=== PATIENT | female | born 1970 | race Caucasian/White ===

== ENCOUNTER 2017-01-25 02:30 | Emergency (ER) | payer OTHER ==
[2017-01-25] MEDS ORDERED: NS 0.9% 1000 ML* 1,000 ML IV ONE (03:00)
[2017-01-25 03:19] LABS: Hematocrit 51 % (35-47); Hemoglobin 16.6 g/dl (12.0-16.0); Mean Corpuscular HGB Conc 33 g/dl (31-36); Mean Corpuscular Hemoglobin 27 pg (27-31); Mean Corpuscular Volume 84 fL (80-97); Mean Platelet Volume 10 um3 (7.4-10.4); Red Blood Count 6.12 10^6/ul (4.0-5.4); Red Cell Distribution Width 14 % (10.5-15); White Blood Count 11.5 10^3/ul (3.5-10.8)
[2017-01-25 03:27] LABS: ALT 11 U/L (7-52); AST 11 U/L (13-39); Albumin 3.7 g/dL (3.2-5.2); Alkaline Phosphatase 68 U/L (34-104); Anion Gap 6 mmol/L (2-11); BUN/Creatinine Ratio 15.6 (8-20); Blood Urea Nitrogen 10 mg/dL (6-24); C Reactive Protein 22.51 mg/L (< 5.00); CO2 Carbon Dioxide 23 mmol/L (22-32); Calcium 8.8 mg/dL (8.6-10.3); Chloride 104 mmol/L (101-111); EGFR African American 128.5 (>60); EGFR Non-African American 99.9 (>60); Globulin 3.2 g/dL (2-4); Glucose 149 mg/dL (70-100); Lipase 10 U/L (11.0-82.0); Potassium 3.6 mmol/L (3.5-5.0); Sodium 133 mmol/L (133-145); Total Protein 6.9 g/dL (6.4-8.9)
[2017-01-25 05:05] LABS: Urine Bilirubin Negative (Negative); Urine Glucose Negative (Negative); Urine Nitrite Negative (Negative)
--- NOTE | 2017-01-25 05:06 | ED ---
Nataly Garcia Erika, scribed for Ivan Dennis MD on 01/25/17 at 0314 . Abdominal Pain/Female - HPI Summary HPI Summary: Patient is a 46-year-old female presenting to the ED with her son and father with a CC of constant RLQ pain starting at 02:00 today. Patient describes pain as a cramping that felt like a contraction, but did not resolve. Pain has improved somewhat since onset. Patient denies nausea, vomiting, and difficulty urinating. Patient has an IUD. Pt is followed by [facility]. - History of Current Complaint Chief Complaint: EDAbdPain Stated Complaint: LRQ PAIN Time Seen by Provider: 01/25/17 02:55 Hx Obtained From: Patient Onset/Duration: Sudden Onset, Lasting Minutes, Still Present Timing: Constant Severity Initially: Moderate Severity Currently: Mild Pain Intensity: 5 Pain Scale Used: 0-10 Numeric Location: Discrete At: RLQ Radiates: No Character: Cramping Associated Signs and Symptoms: Negative: Urinary Symptoms, Nausea, Vomiting Allergies/Adverse Reactions: Allergies Allergy/AdvReac Type Severity Reaction Status Date / Time Amoxicillin Allergy Hives Verified 01/25/17 02:36 Penicillins Allergy Hives Verified 01/25/17 02:36 PMH/Surg Hx/FS Hx/Imm Hx Musculoskeletal History: Reports: Other Musculoskeletal History - carpal tunnel - Surgical History Surgery Procedure, Year, and Place: C section x2 Infectious Disease History: No Infectious Disease History: Denies: Traveled Outside the [place] in Last 30 Days - Family History Known Family History: Positive: Cardiac Disease, Hypertension, Diabetes - Social History Alcohol Use: None Hx Substance Use: No Substance Use Type: Reports: None Hx Tobacco Use: Yes Smoking Status (MU): Heavy Every Day Tobacco Smoker Review of Systems Negative: Fever Positive: Abdominal Pain. Negative: Vomiting, Nausea Negative: dysuria All Other Systems Reviewed And Are Negative: Yes Physical Exam Triage Information Reviewed: Yes Vital Signs On Initial Exam: Initial Vitals Temp Pulse Resp BP Pulse Ox 97.8 F 96 18 134/74 95 01/25/17 02:34 01/25/17 02:34 01/25/17 02:34 01/25/17 02:34 01/25/17 02:34 Vital Signs Reviewed: Yes Appearance: Positive: Well-Appearing, No Pain Distress Skin: Positive: Warm Head/Face: Positive: Normal Head/Face Inspection Eyes: Positive: DAV ENT: Positive: Hearing grossly normal Neck: Positive: Supple Respiratory/Lung Sounds: Positive: Clear to Auscultation, Breath Sounds Present Cardiovascular: Positive: RRR Abdomen Description: Positive: Soft, Other: - mild lower abd tenderness Bowel Sounds: Positive: Present Musculoskeletal: Positive: Strength/ROM Intact Neurological: Positive: Sensory/Motor Intact Psychiatric: Positive: Affect/Mood Appropriate - [place] Coma Scale Coma Scale Total: 15 Diagnostics - Vital Signs Vital Signs Temp Pulse Resp BP Pulse Ox 01/25/17 02:34 97.8 F 96 18 134/74 95 - Laboratory Lab Results: Lab Results 01/25/17 01/25/17 01/25/17 Range/Units 03:05 03:05 04:45 WBC 11.5 H (3.5-10.8) 10^3/ul RBC 6.12 H (4.0-5.4) 10^6/ul Hgb 16.6 H (12.0-16.0) g/dl Hct 51 H (35-47) % MCV 84 (80-97) fL MCH 27 (27-31) pg MCHC 33 (31-36) g/dl RDW 14 (10.5-15) % Plt Count 184 (150-450) 10^3/ul MPV 10 (7.4-10.4) um3 Neut % (Auto) 60.6 (38-83) % Lymph % (Auto) 30.0 (25-47) % [place] % (Auto) 7.5 (1-9) % Eos % (Auto) 1.3 (0-6) % Baso % (Auto) 0.6 (0-2) % Absolute Neuts (auto) 7.0 (1.5-7.7) 10^3/ul Absolute Lymphs (auto) 3.5 (1.0-4.8) 10^3/ul Absolute Monos (auto) 0.9 H (0-0.8) 10^3/ul Absolute Eos (auto) 0.1 (0-0.6) 10^3/ul Absolute Basos (auto) 0.1 (0-0.2) 10^3/ul Absolute Nucleated RBC 0.01 10^3/ul Nucleated RBC % 0.1 Sodium 133 (133-145) mmol/L Potassium 3.6 (3.5-5.0) mmol/L Chloride 104 (101-111) mmol/L Carbon Dioxide 23 (22-32) mmol/L Anion Gap 6 (2-11) mmol/L BUN 10 (6-24) mg/dL Creatinine 0.64 (0.51-0.95) mg/dL Est GFR ( Amer) 128.5 (>60) Est GFR (Non-Af Amer) 99.9 (>60) BUN/Creatinine Ratio 15.6 (8-20) Glucose 149 H (70-100) mg/dL Calcium 8.8 (8.6-10.3) mg/dL Total Bilirubin 0.80 (0.2-1.0) mg/dL AST 11 L (13-39) U/L ALT 11 (7-52) U/L Alkaline Phosphatase 68 (34-104) U/L C-Reactive Protein 22.51 H (< 5.00) mg/L Total Protein 6.9 (6.4-8.9) g/dL Albumin 3.7 (3.2-5.2) g/dL Globulin 3.2 (2-4) g/dL Albumin/Globulin Ratio 1.2 (1-3) Lipase 10 L (11.0-82.0) U/L Beta HCG, Quant < 0.60 mIU/mL Urine Color Yellow Urine Appearance Clear Urine pH 6.0 (5-9) Ur Specific [place] 1.025 (1.010-1.030) Urine Protein Negative (Negative) Urine Ketones Negative (Negative) Urine Blood Negative (Negative) Urine Nitrate Negative (Negative) Urine Bilirubin Negative (Negative) Urine Urobilinogen Negative (Negative) Ur Leukocyte Esterase Negative (Negative) Urine Glucose Negative (Negative) Result Diagrams: 01/25/17 03:05 01/25/17 03:05 Lab Statement: Any lab studies that have been ordered have been reviewed, and results considered in the medical decision making process. Re-Evaluation - Re-Evaluation First Eval Change: Improved Abdominal Pain Fem Course/Dx - Course Course Of Treatment: A 46 y/o F presents to the ED with a CC of RLQ abdominal cramping. Blood work completed. UA WNL. Patient's pain has improved. Patient will be discharged home with follow up from her PCP. - Diagnoses Provider Diagnoses: Abdominal pain Discharge - Discharge Plan Condition: Improved Disposition: HOME Patient Education Materials: Abdominal Pain (ED) Referrals: Brandy Daley MD [Primary Care Provider] - Additional Instructions: Please follow up with your PCP The documentation as recorded by the Nataly moya Erika accurately reflects the service I personally performed and the decisions made by me, Ivan Dennis MD.
[2017-01-25 05:21] VITALS: BP 117/63
== END 2017-01-25 05:20 | disposition home or self-care (01) ==
LOC: ED 02:30
DX: R10.31 Right lower quadrant pain (principal); F17.210 Nicotine dependence, cigarettes, uncomplicated
CPT/HCPCS: 36415; 80053; 81003; 83690; 84702; 85025; 86140; 99282

== ENCOUNTER 2018-05-08 18:06 | Emergency (ER) | payer OTHER ==
[2018-05-08 19:00] LABS: ABS Basophils 0.1 10^3/ul (0-0.2); ABS Eosinophils 0.2 10^3/ul (0-0.6); ABS Lymphocytes 3.7 10^3/ul (1.0-4.8); ABS Monocytes 0.9 10^3/ul (0-0.8); ABS Neutrophils 7.6 10^3/ul (1.5-7.7); ABS Nucleated RBC 0 10^3/ul; Eosinophil % 1.9 % (0-6); Hematocrit 49 % (35-47); Hemoglobin 16.3 g/dl (12.0-16.0); Lymphocyte % 29.5 % (25-47); Mean Corpuscular HGB Conc 33 g/dl (31-36); Mean Corpuscular Hemoglobin 28 pg (27-31); Mean Corpuscular Volume 85 fL (80-97); Mean Platelet Volume 10.7 um3 (7.4-10.4); Nucleated Red Blood Cells % 0.1; Platelet Count 207 10^3/ul (150-450); Red Blood Count 5.76 10^6/ul (4.00-5.40); Red Cell Distribution Width 14 % (10.5-15); White Blood Count 12.4 10^3/ul (3.5-10.8)
[2018-05-08 19:12] LABS: INR 0.86 (0.77-1.02)
[2018-05-08 19:20] LABS: EGFR Non-African American 90.8 (>60)
--- NOTE | 2018-05-08 19:26 | RAD ---
INDICATION: Chest pain COMPARISON: Chest x-ray October 12, 2011 TECHNIQUE: Single AP portable view of the chest was obtained. FINDINGS: Image quality is compromised due to the relative inferiority of a portable chest x-ray. The heart and mediastinum exhibit normal size and contour. The lungs are grossly clear. There is no evidence of a large pleural effusion. Visualized bones are normal for the patient's age. IMPRESSION: No radiographic evidence for acute cardiopulmonary abnormality on this portable chest x-ray.
--- NOTE | 2018-05-08 19:35 | ED ---
HPI Chest Pain - HPI Summary HPI Summary: A 48 y/o female presents to ED c/o chest pain. According to the patient, the "pain" has been going on and worsening since 05/02/2018. She stated that she is not calling it chest pain until today because before it was a little pain during coughing, "not chest pain so to speak". Currently, the chest pain radiates to the right side of back reaching 6/10 in severity. The pain is reproducible when pressing on mid-sternal chest. The patient describes the pain as a back ache and when she cough there is a sharp pain. Pt denies any fever, pain in legs, SOB (has it when coughing), however, has vomiting where the flem is yellowish greenish and wheezing. She noted that she was camping out in the [facility] for about a week, where she came back on 05/02/2018, she exhibited a cough and chest pain from the cough. The patient believes it is bronchitis, however she notes that it is different when she did have bronchitis a while ago. She decided to come into ED because she could barely sleep on her right side because of the pain, however when she was able to sleep, she woke because of the chest pain. Patient is allergic to Amoxicillin and Penicillin. SHx of smoking. PMHx of pneumonia, DM and RA. No FHx of thrombosis, however RA and DM ( cousins, grandparents, mother). Pt has no inhaler. Current medicatins include sancho for Rheumatoid arthritis and she started Metformin two weeks ago for her DM. She takes Naproxen as needed. PCP is Dr. Rain. Major surgeries include 2 Caesarean sections, nodules due to RA, carpal tunnel and moles. - History of Current Complaint Chief Complaint: EDChestPainROMI Time Seen by Provider: 05/08/18 18:19 Hx Obtained From: Patient Onset/Duration: Started Days Ago - 05/02/2018, Still Present, Worse Since Timing: Constant Initial Severity: Moderate Current Severity: Moderate Pain Intensity: 6 Pain Scale Used: 0-10 Numeric Chest Pain Location: Mid Sternal Chest Pain Radiates: Yes Chest Pain Radiates To:: Back - Right side of back Character: Dull/Aching, Sharp/Stabbing Aggravating Factor(s): Nothing Alleviating Factor(s): Nothing Associated Signs and Symptoms: Positive: Chest Pain, Shortness of Breath, Cough , Vomiting - Flem is yellowish greenish, Other: - NEGATIVE: Pain in legs - Allergy/Home Medications Allergies/Adverse Reactions: Allergies Allergy/AdvReac Type Severity Reaction Status Date / Time amoxicillin Allergy Hives Verified 05/08/18 18:29 Penicillins Allergy Hives Verified 05/08/18 18:29 Home Medications: Home Medications Naproxen [Naprosyn 500 mg tab] 500 mg PO Q8H PRN 05/08/18 [History Confirmed ] metFORMIN* [Glucophage 500 MG TAB *] 500 mg PO QAM 05/08/18 [History Confirmed 05/08/18] PMH/Surg Hx/FS Hx/Imm Hx Endocrine/Hematology History: Reports: Hx Diabetes Respiratory History: Reports: Hx Pneumonia Musculoskeletal History: Reports: Hx Rheumatoid Arthritis, Other Musculoskeletal History - carpal tunnel - Surgical History Surgery Procedure, Year, and Place: C section x2 Infectious Disease History: No Infectious Disease History: Denies: Traveled Outside the [place] in Last 30 Days - Family History Known Family History: Positive: Cardiac Disease, Hypertension, Diabetes - Social History Alcohol Use: None Hx Substance Use: No Substance Use Type: Reports: None Hx Tobacco Use: Yes Smoking Status (MU): Heavy Every Day Tobacco Smoker Review of Systems Negative: Fever Positive: Chest Pain Positive: Cough, Other - POSITIVE: Wheezing. Negative: Shortness Of Breath - Present during cough Positive: Vomiting All Other Systems Reviewed And Are Negative: Yes Physical Exam - Summary Physical Exam Summary: Appearance: Well-appearing, moderate pain distress, well-nourished Skin: Warm, color reflects adequate perfusion, dry Head: Normal Head/Face inspection, atraumatic Eyes: Conjunctiva clear ENT: Normal inspection Neck: Supple, no nodes, no JVD Respiratory: Scattered ronchi, no respiratory distress Cardio: RRR, No murmur, pulses normal, brisk capillary refill Abdomen: Soft, nontender Bowel sounds: Present Musculoskeletal: Strength Intact/ROM intact, no calf tenderness, no edema, rheumatoid deformities of left toes. Psychological: Normal Neuro: Alert, muscle tone normal, no focal deficit Triage Information Reviewed: Yes Vital Signs On Initial Exam: Initial Vitals Temp Pulse Resp BP Pulse Ox 98.8 F 93 18 147/88 96 07/14/18 18:15 05/08/18 18:15 05/08/18 18:15 05/08/18 18:15 05/08/18 18:15 Vital Signs Reviewed: Yes Diagnostics - Vital Signs Vital Signs Temp Pulse Resp BP Pulse Ox 05/08/18 19:00 22 05/08/18 18:30 88 18 135/82 94 05/08/18 18:29 92 17 94 05/08/18 18:15 98.8 F 93 18 147/88 96 - Laboratory Lab Results: Lab Results 05/08/18 05/08/18 05/08/18 Range/Units 18:50 18:50 18:50 WBC 12.4 H (3.5-10.8) 10^3/ul RBC 5.76 H (4.00-5.40) 10^6/ul Hgb 16.3 H (12.0-16.0) g/dl Hct 49 H (35-47) % MCV 85 (80-97) fL MCH 28 (27-31) pg MCHC 33 (31-36) g/dl RDW 14 (10.5-15) % Plt Count 207 (150-450) 10^3/ul MPV 10.7 H (7.4-10.4) um3 Neut % (Auto) 60.8 (38-83) % Lymph % (Auto) 29.5 (25-47) % [place] % (Auto) 7.1 H (0-7) % Eos % (Auto) 1.9 (0-6) % Baso % (Auto) 0.7 (0-2) % Absolute Neuts (auto) 7.6 (1.5-7.7) 10^3/ul Absolute Lymphs (auto) 3.7 (1.0-4.8) 10^3/ul Absolute Monos (auto) 0.9 H (0-0.8) 10^3/ul Absolute Eos (auto) 0.2 (0-0.6) 10^3/ul Absolute Basos (auto) 0.1 (0-0.2) 10^3/ul Absolute Nucleated RBC 0 10^3/ul Nucleated RBC % 0.1 INR (Anticoag Therapy) (0.77-1.02) APTT (26.0-36.3) seconds D-Dimer, Quantitative (Less Than 230) ng/mL Sodium 137 (135-145) mmol/L Potassium 3.6 (3.5-5.0) mmol/L Chloride 103 (101-111) mmol/L Carbon Dioxide 27 (22-32) mmol/L Anion Gap 7 (2-11) mmol/L BUN 11 (6-24) mg/dL Creatinine 0.69 (0.51-0.95) mg/dL Est GFR ( Amer) 109.9 (>60) Est GFR (Non-Af Amer) 90.8 (>60) BUN/Creatinine Ratio 15.9 (8-20) Glucose 193 H (70-100) mg/dL Lactic Acid 1.0 (0.5-2.0) mmol/L Calcium 9.3 (8.6-10.3) mg/dL Magnesium 1.9 (1.9-2.7) mg/dL Total Bilirubin 0.30 (0.2-1.0) mg/dL AST 11 L (13-39) U/L ALT 11 (7-52) U/L Alkaline Phosphatase 66 (34-104) U/L Total Creatine Kinase 29 (10-223) U/L CK-MB (CK-2) 1.7 (0.6-6.3) ng/mL Troponin I 0.01 (<0.04) ng/mL B-Natriuretic Peptide ( - 100) pg/mL Total Protein 6.8 (6.4-8.9) g/dL Albumin 3.8 (3.2-5.2) g/dL Globulin 3.0 (2-4) g/dL Albumin/Globulin Ratio 1.3 (1-3) Beta HCG, Quant 3.57 mIU/mL 05/08/18 05/08/18 Range/Units 18:50 18:50 WBC (3.5-10.8) 10^3/ul RBC (4.00-5.40) 10^6/ul Hgb (12.0-16.0) g/dl Hct (35-47) % MCV (80-97) fL MCH (27-31) pg MCHC (31-36) g/dl RDW (10.5-15) % Plt Count (150-450) 10^3/ul MPV (7.4-10.4) um3 Neut % (Auto) (38-83) % Lymph % (Auto) (25-47) % [place] % (Auto) (0-7) % Eos % (Auto) (0-6) % Baso % (Auto) (0-2) % Absolute Neuts (auto) (1.5-7.7) 10^3/ul Absolute Lymphs (auto) (1.0-4.8) 10^3/ul Absolute Monos (auto) (0-0.8) 10^3/ul Absolute Eos (auto) (0-0.6) 10^3/ul Absolute Basos (auto) (0-0.2) 10^3/ul Absolute Nucleated RBC 10^3/ul Nucleated RBC % INR (Anticoag Therapy) 0.86 (0.77-1.02) APTT 32.7 (26.0-36.3) seconds D-Dimer, Quantitative < 200 (Less Than 230) ng/mL Sodium (135-145) mmol/L Potassium (3.5-5.0) mmol/L Chloride (101-111) mmol/L Carbon Dioxide (22-32) mmol/L Anion Gap (2-11) mmol/L BUN (6-24) mg/dL Creatinine (0.51-0.95) mg/dL Est GFR ( Amer) (>60) Est GFR (Non-Af Amer) (>60) BUN/Creatinine Ratio (8-20) Glucose (70-100) mg/dL Lactic Acid (0.5-2.0) mmol/L Calcium (8.6-10.3) mg/dL Magnesium (1.9-2.7) mg/dL Total Bilirubin (0.2-1.0) mg/dL AST (13-39) U/L ALT (7-52) U/L Alkaline Phosphatase (34-104) U/L Total Creatine Kinase (10-223) U/L CK-MB (CK-2) (0.6-6.3) ng/mL Troponin I (<0.04) ng/mL B-Natriuretic Peptide 41 ( - 100) pg/mL Total Protein (6.4-8.9) g/dL Albumin (3.2-5.2) g/dL Globulin (2-4) g/dL Albumin/Globulin Ratio (1-3) Beta HCG, Quant mIU/mL Result Diagrams: 05/08/18 18:50 05/08/18 18:50 Lab Statement: Any lab studies that have been ordered have been reviewed, and results considered in the medical decision making process. - Radiology CXR Xray Interpretation: No Acute Changes Radiology Interpretation Completed By: Radiologist - No radiographic evidence for acute cardiopulmonary abnormality on this portable chest x-ray. ED physician reviewed this radiology report. - EKG 1821 Cardiac Rate: NL - 92 BPM EKG Rhythm: Sinus Rhythm ST Segment: Non-Specific Ectopy: None EKG Interpretation: nl VLAD CT, nl QTc, no acute changes EKG Comparison: No Significant Change - 04/17/2013 Chest Pain Course/Dx - Course Course Of Treatment: A 48 y/o female presents to ED c/o chest pain. According to the patient, the "pain" has been going on and worsening since Thursday, 2017. An CXR revealed no radiographic evidence for acute cardiopulmonary abnormality on this portable chest x-ray. An EKG revealed a rate of 92 BPM, nl VLAD CT, nl QTc, no acute changes. In the ED course, patient recieved no medications. Pt medications reviewed this visit. Patient will be discharged with a diagnosis of acute bronchitis and chest pain. Follow up with PCP, Dr. Daley, in 2 days. - Diagnoses Provider Diagnoses: Chest pain, Acute bronchiolitis Discharge - Sign-Out/Discharge Documenting (check all that apply): Patient Departure - DISCHARGE HOME - Discharge Plan Condition: Stable Disposition: HOME Prescriptions: Albuterol HFA INHALER* [Ventolin HFA Inhaler*] 2 puff INH Q4H PRN #1 mdi PRN Reason: Shortness Of Breath Azithromycin TAB* [Zithromax TAB (Z-BONNIE) 250 mg #6 tabs] 250 mg PO DAILY #4 tab Patient Education Materials: Chest Pain (ED), Acute Bronchitis (ED) Referrals: Brandy Daley MD [Primary Care Provider] - 2 Days Additional Instructions: You should hold your Humira until you have finished the antibiotics. We gave your first dose of azithromycin tonight, continue it tomorrow. We have also prescribed an albuterol inhaler that you may use. Return to the ER if you have any new or worsening symptoms.
[2018-05-08] MEDS ORDERED: Azithromycin TAB* 250 MG PO ONE (22:35)
[2018-05-08 22:37] VITALS: BP 132/84
== END 2018-05-08 23:03 | disposition home or self-care (01) ==
LOC: ED 18:06
DX: R07.89 Other chest pain (principal); J21.9 Acute bronchiolitis, unspecified; E11.9 Type 2 diabetes mellitus without complications; Z79.84 Long term (current) use of oral hypoglycemic drugs; M06.9 Rheumatoid arthritis, unspecified; Z88.0 Allergy status to penicillin; Z82.49 Family history of ischemic heart disease and other diseases of the circulatory system; Z83.3 Family history of diabetes mellitus; F17.200 Nicotine dependence, unspecified, uncomplicated
CPT/HCPCS: 36415; 71045; 80053; 82550; 82553; 83605; 83735; 83880; 84484; 84702; 85025; 85379; 85610; 85730; 93005; 99283; A9270-GY

== ENCOUNTER 2018-10-21 20:00 | Emergency (ER) | payer OTHER ==
--- NOTE | 2018-10-21 21:57 | ED ---
Lower Extremity - HPI Summary HPI Summary: 48 year old female presents with swelling to the right leg for the past couple days. She is not sure if she has family history of blood clots. She states that she has history of RA in the right ankle has never had swelling in the leg. She states that it feels like her calf has a charley horse. She denies any numbness or tingling. No injury that she knows of. No chest pain or shortness of breath. No other complaint. Is a smoker. she is also diabetic. - History of Current Complaint Chief Complaint: EDExtremityLower Stated Complaint: RT LEG SWOLLEN Time Seen by Provider: 10/21/18 20:42 Pain Intensity: 4 - Allergies/Home Medications Allergies/Adverse Reactions: Allergies Allergy/AdvReac Type Severity Reaction Status Date / Time amoxicillin Allergy Hives Verified 10/21/18 20:19 Penicillins Allergy Hives Verified 10/21/18 20:19 PMH/Surg Hx/FS Hx/Imm Hx Endocrine/Hematology History: Reports: Hx Diabetes Respiratory History: Reports: Hx Pneumonia Denies: Hx Asthma Musculoskeletal History: Reports: Hx Rheumatoid Arthritis, Other Musculoskeletal History - carpal tunnel - Surgical History Surgery Procedure, Year, and Place: C section x2. surgery for nodules for RA. carpal tunnel. mole removals Infectious Disease History: No Infectious Disease History: Denies: Traveled Outside the [place] in Last 30 Days - Family History Known Family History: Positive: Cardiac Disease, Hypertension, Diabetes - Social History Alcohol Use: None Hx Substance Use: No Substance Use Type: Reports: None Hx Tobacco Use: Yes Smoking Status (MU): Heavy Every Day Tobacco Smoker Review of Systems Negative: Fever Negative: Shortness Of Breath Positive: Myalgia - right calf pain and swelling All Other Systems Reviewed And Are Negative: Yes Physical Exam Triage Information Reviewed: Yes Vital Signs On Initial Exam: Initial Vitals Temp Pulse Resp BP Pulse Ox 98.1 F 102 16 163/95 94 10/21/18 20:15 10/21/18 20:15 10/21/18 20:15 10/21/18 20:15 10/21/18 20:15 Vital Signs Reviewed: Yes Appearance: Positive: Well-Appearing Skin: Positive: Warm, Dry Head/Face: Positive: Normal Head/Face Inspection Eyes: Positive: Normal, Conjunctiva Clear ENT: Positive: Pharynx normal Respiratory/Lung Sounds: Positive: Clear to Auscultation, Breath Sounds Present Cardiovascular: Positive: Normal, RRR Musculoskeletal: Positive: Strength/ROM Intact - right leg, Jay Sign Right, Edema Right - leg, Other - good pulses, sensation grossly intact Neurological: Positive: Normal Psychiatric: Positive: Normal Diagnostics - Vital Signs Vital Signs Temp Pulse Resp BP Pulse Ox 10/21/18 20:15 98.1 F 102 16 163/95 94 - Laboratory Result Diagrams: 10/21/18 21:51 10/21/18 21:51 Lab Statement: Any lab studies that have been ordered have been reviewed, and results considered in the medical decision making process. Lower Extremity Course/Dx - Course Course Of Treatment: 48 year old female presents with swelling to the right leg for the past couple days. She is not sure if she has family history of blood clots. She states that she has history of RA in the right ankle has never had swelling in the leg. She states that it feels like her calf has a charley horse. She denies any numbness or tingling. No injury that she knows of. No chest pain or shortness of breath. No other complaint. Is a smoker. she is also diabetic. On exam has tenderness over right calf. Edema noted to the right leg. Neurovascular intact. wbc elevated but consistent with previous. bnp normal. u/s no dvt. explained do not reason why leg is swelling. told to elevate and use compression socks. patient understand and agrees with plan. - Diagnoses Differential Diagnosis/HQI/PQRI: Positive: DVT, Strain, Other - chf Provider Diagnoses: Edema of right lower extremity Discharge - Sign-Out/Discharge Documenting (check all that apply): Patient Departure - Discharge Plan Condition: Good Disposition: HOME Patient Education Materials: Leg Edema (ED) Referrals: Temi Rain MD [Primary Care Provider] - Additional Instructions: Use compression socks Ice Elevate Take Tylenol for pain every 6 hours Follow up with primary within 5 days Return to ED if develop any new or worsening symptoms - Billing Disposition and Condition Condition: GOOD Disposition: Home
[2018-10-21 21:58] LABS: ABS Basophils 0.1 10^3/ul (0-0.2); ABS Eosinophils 0.3 10^3/ul (0-0.6); ABS Lymphocytes 2.6 10^3/ul (1.0-4.8); ABS Monocytes 0.8 10^3/ul (0-0.8); ABS Neutrophils 8.8 10^3/ul (1.5-7.7); ABS Nucleated RBC 0 10^3/ul; Eosinophil % 2.2 %; Hematocrit 47 % (35-47); Hemoglobin 15.5 g/dl (12.0-16.0); Lymphocyte % 20.5 %; Mean Corpuscular HGB Conc 33 g/dl (31-36); Mean Corpuscular Hemoglobin 27 pg (27-31); Mean Corpuscular Volume 83 fL (80-97); Mean Platelet Volume 9.5 fL (7.4-10.4); Nucleated Red Blood Cells % 0; Platelet Count 276 10^3/ul (150-450); Red Blood Count 5.73 10^6/ul (4.00-5.40); Red Cell Distribution Width 15 % (10.5-15); White Blood Count 12.6 10^3/ul (3.5-10.8)
[2018-10-21 22:10] LABS: Activated Partial Thrombo Time 31.6 seconds (26.0-36.3); INR 0.97 (0.77-1.02)
[2018-10-21 22:14] LABS: Albumin 3.5 g/dL (3.2-5.2); Albumin/Globulin Ratio 1.1 (1-3); BUN/Creatinine Ratio 23.4 (8-20); Calcium 8.8 mg/dL (8.6-10.3); Globulin 3.1 g/dL (2-4); Potassium 3.9 mmol/L (3.5-5.0); Total Bilirubin 0.3 mg/dL (0.2-1.0); Total Protein 6.6 g/dL (6.4-8.9)
[2018-10-21] MEDS ORDERED: Ketorolac INJ* 30 MG/ML 1 ML VIAL IM ONE (22:28)
[2018-10-21 22:49] LABS: Magnesium 1.9 mg/dL (1.9-2.7)
[2018-10-21 23:22] VITALS: BP 120/57
== END 2018-10-21 23:21 | disposition home or self-care (01) ==
LOC: ED 20:00
DX: R60.0 Localized edema (principal); M71.21 Synovial cyst of popliteal space [Baker], right knee; E11.9 Type 2 diabetes mellitus without complications; M06.9 Rheumatoid arthritis, unspecified; Z88.0 Allergy status to penicillin; F17.200 Nicotine dependence, unspecified, uncomplicated
CPT/HCPCS: 36415; 80053; 83735; 83880; 85025; 85610; 85730; 96372; 99282; J1885

== ENCOUNTER 2018-11-17 12:15 | Emergency (ER) | payer OTHER ==
--- OUTSIDE RECORDS SUMMARY | 2018-11-17 12:36 | XMS REPORT | Continuity of Care Document ---
:1970 Author Organization [facility] Address [address], [place] [id number] Phone Care Team Providers Name Role Phone Yisel Mcneil PA-C Unavailable Unavailable Allergies, Adverse Reactions, Alerts Substance Reaction Status Penicillins Active Medications Medication Instructions Dosage Effective Dates Status Comments (start - stop) prednisone 5 mg tablet take 3 tablets by oral - Active route every day for five days then decrease by one tablet every three days Orencia ClickJect 125 inject 1 milliliter by 125 MG - Active mg/mL subcutaneous subcutaneous route auto-injector every week naproxen 500 mg take 1 tablet by oral 500 MG - Active tablet,delayed release route 2 times every day with food as needed metformin 500 mg take 1 tablet by oral 500 MG - Active tablet route every day Problems Condition Effective Dates (start Clinical Status Comments - stop) 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 org/sys involv 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 Pain in right leg 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 org/sys involv Other retirement (current) drug therapy 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 org/sys involv Other retirement (current) drug therapy Rheumatoid arthritis w/ rheumatoid factor of multiple sites w/o organ involvement Other retirement (current) drug therapy Rheumatoid arthritis w/ rheumatoid factor of multiple sites w/o organ involvement Pain in rt hand Rheumatoid arthritis w/ rheumatoid factor of multiple sites w/o organ involvement Other retirement (current) drug therapy Rheumatoid arthritis w/ rheumatoid factor of multiple sites w/o organ involvement 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 The mapped diagnosis code was Rheumatoid Arthritis, 714.0, added by Yisel Che, with responsible provider Yisel Che. Onset date 08/17/2012; last addressed on 07/05/2014. Procedures Procedure Date No information Results Test Name Date and Time Measure Units Reference Range Abnormal Flag Status Comments No information Advance Directives Directive Yes / No Effective Date File Name No information Encounters Encounter Practice Location Reason(s) Diagnoses Date Provider Providers Description For Visit Copied on Encounter Arthritis Arthritis [facility] 9 SILVA Sage [facility] 9 B. 5794 PLLC, 5794 PLLC [facility], [place], [place], [id number], [id number], . tel:[phone] tel:[phone] Arthritis Arthritis Rheu arthritis [facility] factor 7- SILVA Morillo Provider: Alona hernández [facility] w/o 9 B. 5794 Gabe PLLC, 5794 PLLC org/sys [facility], [facility], [facility], long line teamster [place], [place], (current) drug [place], [address] [place], therapy[place] [id number], [place] [id number], right leg [place]. [facility], tel:[phone] [place], tel:[phone] [place], [address]. 74[address] tel:[phone] Arthritis Arthritis Rheu arthritis [facility] factor 3-201 SILVA Morillo Provider: Alona Sage [facility] w/o 8 B. 5794 [facility], 5794 PLLC org/sys [facility], [facility], [facility], retirement [place], [place], (current) drug [place], [address] [place], therapy [id number], [place] [id number], [place]. Road, [place] tel:+42 [place], tel:+315 [place], [address]. [address] tel:[phone] Arthritis Arthritis Rheu arthritis [facility] Referring [facility] w rheu factor 8201 PA-C Yisel Provider: Alona Sage mult site w/o 8 B. 5794 [facility] PLL[facility], 5794 PLLC org/sys [facility], [facility] involvOther [place], [facility], long line teamster [place], [place], (current) drug [place], [address] [place], therapy [id number], [place] [id number], [place]. Road, [place] tel:+42 [place], tel:+[phone] [place], [address]. 065666 tel:[phone] Arthritis Arthritis Rheumatoid [facility] arthritis w/ 0 PA-C Yisel Provider: Alona Sage rheumatoid 8 B. 5794 [facility], 5794 PLLC factor of [facility], [facility] multiple sites [place], [facility], w/o organ [place], [place], involvementOth [place], [address] [place], er retirement [id number], [place] [id number], (current) drug [place]. Road, therapy tel:+ [place], tel:+ [place], [address]. [address] tel:[phone] Arthritis Arthritis Rheumatoid [facility] arthritis w/ 0 PA-C Yisel Provider: Alona Sage rheumatoid 8 B. 5794 [facility], 5794 PLLC factor of [facility] multiple sites [place], [facility], w/o organ [place], [place], involvementPai [place], [address] [place], n in rt hand [id number], [place] [id number], [place]. Road, [place] tel:+[phone] [place], tel:+ [place], [address]. 334572 tel:[phone] Arthritis Arthritis Rheumatoid May-0 [facility] Referring [facility] arthritis w SILVA Morillo Provider: Alona Sage rheumatoid 6 B. 5794 [facility] PLL[facility], 5794 PLLC factor of [facility] multiple sites [place], [facility], w/o organ [place], [place], [place]Oth [place], [address] [place], er long line teamster [id number], [place] [id number], (current) drug . Road, therapy tel:+42 [place], tel:+315 [place], [address]. [address] tel:[phone] Arthritis Arthritis Rheumatoid Jan- [facility] Referring [facility] arthritis w SILVA Morillo Provider: Alona Sage rheumatoid 6 B. 5794 [facility], 5794 PLLC factor of [facility] multiple sites [place], [facility], w/o organ [place], [place], involvementOth [place], [address] [place], er retirement [id number], [place] [id number], (current) drug . Road, therapy tel:+ [place], tel:+ [place], [address]. [address] tel:[phone] Arthritis Arthritis Rheumatoid Sep- [place] Referring [facility] arthritis w Fred. 5794 Provider: Alona Sage rheumatoid 5 [facility]arabellaer PLLC, 5794 PLLC factor of [facility] multiple sites [place], [facility], w/o organ [place], [place], involvementOth [id number], [address] [place], er retirement [place]. [place] [id number], drug tel:+[phone] [facility], therapyAcute [place], tel:+[phone] [facility] [place], [address]. 84[address] tel:[phone] Arthritis Arthritis Sep- [facility] Referring [facility] SILVA Morillo Provider: Alona Sage 4 B. 5794 [facility], 5794 [facility], [facility], [facility], [place], [place], [place], [address] [place], [id number], [place] [id number], [place]. Road, tel:[phone] [place], tel:[phone] [place], [address]. 57[address] tel:[phone] Arthritis Arthritis [facility] PA-C January. Provider: [facility] 3 5794 [facility], 5[facility], [facility], [facility], [place], [facility] [place], [place], [address] [place], [id number], [place] [id number], [place]. Road, tel:[phone] [place], tel:[phone] [place], [address]. 911[address] tel:[phone] Arthritis Arthritis [facility] PA-C Greg. Provider: [facility] 3 5794 [facility], 5794 [facility], [facility], [facility], [place], [place], [place], [address] [place], [id number], [place] [id number], . Road, tel:[phone] [place], tel:[phone] [place], [address]. 2527[address] tel:[phone] Arthritis Arthritis [facility] PA-C Yisel Provider: [facility] 2 B. 5794 [facility], 5794 [facility], [facility], [facility], [place], [place], [place], [address] [place], [id number], [place] [id number], [place]. Road, tel:[phone] [place], tel:[phone] [place], [address]. [address]241 tel:[phone] Arthritis Arthritis [facility] PA-C Yisel Provider: [facility] 1 B. 5794 Gabe [facility], 5794 [facility] [place], [facility], [place], [place], [address] [place], [id number], [place] [id number], [place]. Road, [place] tel:[phone] [place], tel:[phone] [place], [address]. [address] tel:[phone] Family History Family Member Diagnosis Age At Onset Cousin Father Throat cancer 66 Great aunt Mother Grandfather Child Grandmother Immunizations Vaccine Date Status Comments Influenza, injectable, administered Source: Other Provider quadrivalent, split virus, 18 years or older Afluria Quad Influenza virus vaccine, administered Source: Other Provider Injection Influenza virus vaccine, administered Source: Other Provider Injection Never had Zoster administered Source: New Immunization Record Influenza virus vaccine, administered Source: Other Provider Injection Never had administered Source: Other Provider Payers Payer name Insurance type Covered constitution party ID Authorization(s) Aetna No Referral Required CI [id number] Social History Type Description Quantity Date Captured Comments Alcohol Use Details Unknown Caffeine Use Details Unknown Tobacco Use Status Smoking Status Unknown Sex Female Vital Signs Date / Height Weight BMI Pulse Blood Temperature Respiratory Body Head BMI Pulse Inhaled Time: Rate Pressure Rate Surface Circumference percentile Ox Ox Area No information Chief Complaint And Reason For Visit No information Reason For Referral Reason For Referral No information Plan Of Treatment Date Type Action Status Goal Tobacco cessation counseling completed Goal Tobacco cessation counseling completed Goal Tobacco cessation counseling completed Goal Tobacco cessation counseling completed Goal Tobacco cessation counseling completed Goal Tobacco cessation counseling completed Goal Tobacco cessation counseling completed Appointment Pili Castro BOOKED History Of Present Illness Encounter Date Complaint History Of Present Illness No information Functional Status Date Functional Assessment No information Medications Administered Medication Instructions Dosage Effective Dates (start - stop) Status Comments No information Instructions Date Instruction Additional Information Risks/benefits of medications reviewed
--- OUTSIDE RECORDS SUMMARY | 2018-11-17 12:36 | XMS REPORT | Continuity of Care Document ---
:1970 Author Organization [facility] Address [address] [place], [place] [id number] Phone Care Team Providers Name Role Phone Yisel Mcneil PA-C Unavailable Unavailable Allergies, Adverse Reactions, Alerts Substance Reaction Status Penicillins Active Medications Medication Instructions Dosage Effective Dates Status Comments (start - stop) prednisone 5 mg take 3 tablets by - Active tablet oral route every day for five days then decrease by one tablet every three days Orencia ClickJect inject 1 125 MG - Active 125 mg/mL milliliter by subcutaneous subcutaneous route auto-injector every week naproxen 500 mg take 1 tablet by 500 MG - Active tablet,delayed oral route 2 times release every day with food as needed metformin 500 mg take 1 tablet by 500 MG - Active tablet oral route every day Cimzia 400 mg/2 mL inject 200 200 Milligram - No Longer (200 mg/mL x 2) Milligram by Active subcutaneous Subcutaneous route syringe kit every 2 weeks Problems Condition Effective Dates (start Clinical Status Comments - stop) 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 org/sys involv [facility] Pain in right leg 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 org/sys involv [facility] drug therapy 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/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 Rheumatoid arthritis w/ rheumatoid factor of multiple sites w/o organ involvement [facility] drug therapy Rheumatoid arthritis w/ rheumatoid factor of multiple sites w/o organ involvement Pain in rt hand Rheumatoid arthritis w/ rheumatoid factor of multiple sites w/o organ involvement Other [facility] drug therapy Rheumatoid arthritis w/ rheumatoid factor of multiple sites w/o organ involvement [facility] drug therapy Rheumatoid arthritis w/ rheumatoid factor of multiple sites w/o organ involvement Other [facility] drug therapy Acute bronchitis Rheumatoid arthritis - Active Mapped from KB Chronic Conditions table on 01/02/2015 by the ICD9 to SNOMED Bulk Mapping Utility. The mapped diagnosis code was Rheumatoid Arthritis, 714.0, added by Yisel Che, with responsible provider Yisel Che. Onset date 08/17/2012; last addressed on 07/05/2014. Procedures Procedure Date OFFICE/OUTPATIENT VISIT, EST Results Test Name Date and Time Measure Units Reference Range Abnormal Flag Status Comments No information Advance Directives Directive Yes / No Effective Date File Name No information Encounters Encounter Practice Location Reason(s) Diagnoses Date Provider Providers Description For Visit Copied on Encounter OFFICE/OUTPA Arthritis Arthritis Rheumatoid Rheu [facility] Referring TIENT VISIT, [facility] arthritis arthritis w SILVA Morillo Provider: FATUMA [facility] (chief rheu factor 9 B. 5794 [facility] PLLC, 5794 PLLC complaint) [facility] site w[facility]o [facility], [facility], [facility], involvOther [place], [facility] [place], [address] [place], (current) [id number], [facility] [id number], drug [place]. [address], therapyPain tel:+[phone] [place], tel:+[phone] [place] [address] [place], [address]. 845682 tel:[phone] Arthritis Arthritis [facility] SILVA [facility] 8 B. 5794 PLLC, 5794 PLLC [facility], [place], [place], [place], [id number], [id number], [place]. [place] tel:[phone] tel:[phone] Arthritis Arthritis Rheu [facility] arthritis w PA-C Yisel Provider: Alona vickersu factor 8 B. 5794 Alias[facility]her PLLC, 5794 PLLC mult site w/o [facility], [facility] [place], [facility], involvOther [place], [place], computer terminal operator [place], [address] [place], (current) [id number], [place] [id number], drug therapy [place]. Road, [place] tel:[phone] [place], tel:[phone] [place], [address]. 839358 tel:[phone] Arthritis Arthritis Rheu Jul- [facility] Referring [facility] arthritis w PA-C Yisel Provider: Alona Sage rheu factor 8 B. 5794 [facility], 5794 PLLC mult site w/o [facility], [facility] [place], [place], involvOther [place], [place], [facility] [place], [address] [place], (current) [id number], [place] [id number], drug therapy [place]. Road, [place] tel:[phone] [place], tel:[phone] [place], [address]. [address]197 tel:[phone] Arthritis Arthritis Rheumatoid Apr- [facility] Referring [facility] arthritis w PA-C Yisel Provider: Alona Sage rheumatoid 8 B. 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 Road, [place] (current) tel:+[phone] [place], tel:[phone] drug [place] [address] [place], [address]. 770698 tel:[phone] Arthritis Arthritis Rheumatoid Apr- [facility] Referring [facility] arthritis w/ 0- PA-C Yisel Provider: Alona Sage rheumatoid 8 B. 5794 [facility], 5794 PLLC factor of [place], [place] multiple [place], [place], sites w/o [place], [place], organ [place], [address] [place], involvementPa [id number], [place] [id number], in in rt hand [place]. Road, [place] tel:+[phone] [place], tel:[phone] [place], [address]. 621344 tel:[phone] Arthritis Arthritis Rheumatoid Aug-0 [facility] Referring [facility] arthritis w SILVA Morillo Provider: Alona Sage rheumatoid 6 B. 5794 [facility]C, 5794 PLLC factor of [facility], [facility] multiple [place], [place], sites w/o [place], [place], organ [place], [address] [place], involvementOt [id number], [place] [id number], her [facility] [place]. Road, [place] (current) tel:+[phone] [place], tel:[phone] [place] [address] [place], [address]. 322979 tel:[phone] Arthritis Arthritis Rheumatoid Apr-0 [facility] Referring [facility] arthritis w SILVA Morillo Provider: Alona Sage rheumatoid 6 B. 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 Road, [place] (current) tel:+[phone] [place], tel:[phone] [place] [address] [place], [address]. 377167 tel:[phone] Arthritis Arthritis Rheumatoid Dec-0 Guy MAE Referring [facility] arthritis w Fred. 5794 Provider: Alona Sage rheumatoid 5 [facility] Aliasgher PLLC, 5794 PLLC factor of [place], [facility] multiple [place], [place], sites w/o [place], [place], organ [id number], [address] [place], involvementOt [place]. [place] [id number], her [facility] tel:[phone] Road, [place] drug [address] [place], tel:+[phone] [place], [address]. 136352 bronchitis tel:[phone] Arthritis Arthritis [facility] SILVA Morillo Provider: Alona Sage 4 B. 5794 [facility] PLLC, 5794 PLLC [facility], [facility], [facility], [place], [place], [place], [address] [place], [id number], [place] [id number], [place]. Road, tel:+[phone] [place], tel:[phone] [address] [place], [address]. 002130 tel:[phone] Arthritis Arthritis [facility] SILVA January. Provider: Alona Sage 3 5794 Alimaner PLLC, 5794 PLLC [facility], [facility], [facility], [place], [facility] [place], [place], [address] [place], [id number], [place] [id number], [place]. Road, tel:+154679 [place], tel:[phone] [place], [address]. [address] tel:[phone] Arthritis Arthritis [facility] SILVA Garza. Provider: Alona Sage 3 5794 [facility] PLLC, 5794 PLLC [facility], [facility], [facility], [place], [place], [place], [address] [place], [id number], [place] [id number], [place]. Road, tel:+[phone] [place], tel:[phone] [address] [place], [address]. 783087 tel:[phone] Arthritis Arthritis [facility] SILVA Morillo Provider: Alona Sage 2 B. 5794 [facility] PLLC, 5794 PLLC [facility], [facility], [facility], [place], [place], [place], [address] [place], [id number], [place] [id number], . Road, tel:[phone] [place], tel:[phone] [place], [address]. 864058 tel:[phone] Arthritis Arthritis [facility] 5-201 SILVA Morillo Provider: [facility] 1 B. 5794 Gabe [facility], 5794 [facility], [facility], [facility], [place], [place], [place], [address] [place], [id number], [place] [id number], . Road, tel:[phone] [place], tel:[phone] [place], [address]. 608633 tel:[phone] Family History Family Member Diagnosis Age At Onset Cousin Father Throat cancer 66 Great aunt Mother Grandfather Child Grandmother Immunizations Vaccine Date Status Comments Influenza, injectable, administered Source: Other Provider quadrivalent, split virus, 18 years or older Afluria Quad [id number] Influenza virus vaccine, administered Source: Other Provider Injection Influenza virus vaccine, administered Source: Other Provider Injection Never had Zoster administered Source: New Immunization Record Influenza virus vaccine, administered Source: Other Provider Injection Never had administered Source: Other Provider Payers Payer name Insurance type Covered libertarian ID Authorization(s) Aetna No Referral Required CI [id number] Social History Type Description Quantity Date Captured Comments Alcohol Use Details 4 drinks weekly Caffeine Use Details coffee 1-2 per day Tobacco Use Status Cigarette smoker Smoking Status Current every day smoker Non-Smoking Tobacco : No Details Available : No Details Available 2018 Use Details Sex Female Vital Signs Date / Height Weight BMI Pulse Blood Temperature Respiratory Body Head BMI Pulse Inhaled Time: Rate Pressure Rate Surface Circumference percentile Ox Ox Area 61.00 186.00 35.1 128/72 2019 in lbs 4 mm[Hg] 3:41 kg/m PM eter (2) Chief Complaint And Reason For Visit Most recent encounter only, dated '11/01/2018 15:40'. Rheumatoid arthritis (chief complaint). Description: The pain severity is 9/10. Patient is experiencing generalized morning stiffness that varies, infection, fatigue and weight loss. Patient denies having abdominal pain, hair loss, diarrhea, loss of appetite, fever, rash, oral ulcers (mouth sores), pleuritic pain and shortness of breath (dyspnea). Reason For Referral Reason For Referral No [...] Encounter Date Complaint History Of Present Illness Rheumatoid arthritis The pain severity is 9/10. Patient is experiencing generalized morning stiffness that varies, infection, fatigue and weight loss. Patient denies having abdominal pain, hair loss, diarrhea, loss of appetite, fever, rash, oral ulcers (mouth sores), pleuritic pain and shortness of breath (dyspnea). Functional Status Date Functional Assessment No information Medications Administered Medication Instructions Dosage Effective Dates (start - stop) Status Comments No information Instructions Date Instruction Additional Information Risks/benefits of medications reviewed
--- OUTSIDE RECORDS SUMMARY | 2018-11-17 12:36 | XMS REPORT | Continuity of Care Document ---
:1970 Author Organization [facility] Address [address], [place] [id number] Phone Care Team Providers Name Role Phone Yisel Mcneil PA-C Unavailable Unavailable Allergies, Adverse Reactions, Alerts Substance Reaction Status Penicillins Active Medications Medication Instructions Dosage Effective Dates Status Comments (start - stop) Cimzia 400 mg/2 mL inject 200 200 Milligram - Active (200 mg/mL x 2) Milligram by subcutaneous Subcutaneous route syringe kit every 2 weeks naproxen 500 mg take 1 tablet by 500 MG - Active tablet,delayed oral route 2 times release every day with food as needed metformin 500 mg take 1 tablet by 500 MG - Active tablet oral route every day Cimzia 200 Mg/ml Inject 200mg/ml - No Longer syringes by Active subcutaneous route every other week using seperate sites Cimzia 200 Mg/ml Inject 200mg/ml - No Longer syringes by Active subcutaneous route every other week using seperate sites Problems Condition Effective Dates (start Clinical Status Comments - stop) 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 org/sys involv Other fdc (current) drug therapy 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 org/sys involv Other fdc (current) drug therapy Rheumatoid arthritis w/ rheumatoid factor of multiple sites w/o organ involvement 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 Rheumatoid arthritis w/ rheumatoid factor of multiple sites w/o organ involvement Pain in rt hand Rheumatoid arthritis w/ rheumatoid factor of multiple sites w/o organ involvement Other fdc (current) drug therapy Rheumatoid arthritis w/ rheumatoid factor of multiple sites w/o organ involvement Other fdc (current) drug therapy Rheumatoid arthritis w/ rheumatoid factor of multiple sites w/o organ involvement Other fdc drug therapy Acute bronchitis Rheumatoid arthritis - Active Mapped from [facility] Chronic Conditions table on 01/02/2015 by the [...] For Visit Copied on Encounter Arthritis Arthritis [facility] SILVA Sage [facility] 8 B. 5794 PLLC, 5794 PLLC [facility], [place], [place], [place], [place], [id number], [id number], [place]. [place] tel:[phone] tel:[phone] Arthritis Arthritis Rheu arthritis [facility] factor 3 OCTAVIA-Chinedu Morillo Provider: Alona Sage [facility] w/o 8 B. 5794 Gabe PLLC, 5794 PLLC org/sys [facility], [facility], long term care social worker [place], [facility] [place], (current) drug [place], [address] [place], therapy [id number], [facility] [id number], [place]. Road, tel:[phone] [place], tel:[phone] [place], [address]. 728742 tel:[phone] Arthritis Arthritis Rheu arthritis [facility] [employer] factor 8 PA-C Yisel Provider: Alona Sage [facility] w/o 8 B. 5794 Gabe PLLC, 5794 PLLC org/sys [facility], [facility], fdc [place], [place], (current) drug [place], [address] [place], therapy [id number], [place] [id number], [place]. Road, [place] tel:+42 [place], tel:+13 [place], [address]. 844957 tel:[phone] Arthritis Arthritis Rheumatoid [facility] Referring Health Health arthritis w PA-C Yisel Provider: Alona Sage rheumatoid 8 B. 5794 Aliasgher PLLC, 5794 PLLC factor of [facility] multiple sites [place], [facility], w/o organ [place], [place], involvementOth [place], [address] [place], er long term care social worker [id number], [place] [id number], (current) drug [place]. Road, therapy tel:42 [place], tel:13 [place], [address]. 16[address] tel:[phone] Arthritis Arthritis Rheumatoid [facility] Referring Health Health arthritis w/ PA-C Yisel Provider: Alona Sage rheumatoid 8 B. 5794 Aliasgher PLLC, 5794 PLLC factor of [facility] multiple sites [place], [facility], w/o organ [place], [place], involvementPai [place], [address] [place], n in rt hand [id number], [place] [id number], [place]. Road, [place] tel:+42 [place], tel:+13 [place], [address]. 918652 tel:[phone] Arthritis Arthritis Rheumatoid [facility] Referring Health Health arthritis w/ PA-C Yisel Provider: Aolna Sage rheumatoid 6 B. 5794 Aliasgher PLLC, 5794 PLLC factor of [facility] multiple sites [place], [facility], w/o organ [place], Clinic [place], involvementOth [place], [address] [place], er long term care social worker [id number], [place] [id number], (current) drug [place]. Road, [place] therapy tel:+42 [place], tel:+ [place], [address]. 0704[address] tel:[phone] Arthritis Arthritis Rheumatoid Jan- [facility] Referring Health Health arthritis PA-C Yisel Provider: Alona Sage rheumatoid 6 B. 5794 Aliasarabellaer PLLC, 5794 PLLC factor of [facility] multiple sites [place], [facility], w/o organ [place], Clinic [place], involvementOth [place], [address] [place], er fdc [id number], [place] [id number], (current) drug [place]. Road, therapy tel:+42 [place], tel:+[address] [place], [address]. 151207 tel:[phone] Arthritis Arthritis Rheumatoid Sep- Guy MAE Referring [facility] Health arthritis Fred. 5794 Provider: Alona Sage rheumatoid 5 [facility] Gabe PLLC, 5794 PLLC factor of [facility] multiple sites [place], [facility], w/o organ [place], [place], involvementOth [id number], [address] [place], er fdc [place]. [place] [id number], drug tel:+42 Road, therapyAcute [place], tel:+315 [place], [address]. 468356 tel:[phone] Arthritis Arthritis [facility] Health PA-C Yisel Provider: Alona Sage 4 B. 5794 Gilmaer PLLC, 5794 PLLC [facility], [facility], [facility], [place], [place], [place], [address] [place], [id number], [place] [id number], [place]. Road, tel:+[phone] [place], tel:+315 [place], [address]. 028[address] tel:[phone] Arthritis Arthritis [facility] Health PA-C [place]. Provider: Alona Sage 3 5794 Gabe PLLC, 5794 [facility], [facility], [facility], [place], [facility] [place], [place], [address] [place], [id number], [place] [id number], [place]. Road, tel:[phone] [place], tel:[phone] [place], [address]. 464828 tel:[phone] Arthritis Arthritis Apr- [facility] 2 PA-C Greg. Provider: [facility] 3 5794 [facility], 5794 [facility], [facility], [facility], [place], [facility], [place], [address] [place], [id number], [place] [id number], [place]. Road, tel:+[phone] [place], tel:[phone] [place], [address]. 215111 tel:[phone] Arthritis Arthritis Jul- [facility] 3 PA-C Yisel Provider: [facility] 2 B. 5794 [facility], 5794 [facility], [facility], [facility], [place], Clinic [place], [place], [address] [place], [id number], [facility] [id number], . Road, tel:+[phone] [place], tel:[phone] [place], [address]. 194895 tel:[phone] Arthritis Arthritis Jun- [facility] PA-C Yisel Provider: [facility] 1 B. 5794 [facility], 5794 [facility], [facility], [place], [place], [place], [address] [place], [id number], [facility] [id number], [place]. Road, tel:+[phone] [place], tel:[phone] [place], [address]. 133273 tel:[phone] Family History Family Member Diagnosis Age At [...] Provider Payers Payer name Insurance type Covered republican ID Authorization(s) Aetna No Referral Required [id number] Social History Type Description Quantity Date Captured Comments Sex Female Vital Signs Date / Height [...] Medications Administered Medication Instructions Dosage Effective Dates Status Comments (start - stop) Cimzia 200 Mg/ml Inject 200mg/ml - No Longer syringes by Active subcutaneous route every other week using seperate sites Instructions Date Instruction Additional Information Risks/benefits of medications reviewed
--- OUTSIDE RECORDS SUMMARY | 2018-11-17 12:36 | XMS REPORT | Continuity of Care Document ---
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 Rheumatoid arthritis w/ rheumatoid factor of multiple sites w/o organ involvement 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 5794 [facility] 9 [facility] PLLC, 5794 PLLC [place], [facility], [place], [place], [place], [id number], [place], . [id number], tel:[phone] tel:[phone] Arthritis Arthritis Rheu arthritis [facility] factor 7- PA-C Yisel Provider: Alona [facility] w/o 9 B. 5794 Gabe [facility], 5794 PLL org/sys [facility], [facility], [facility], scarifier operator [place], [place], (current) drug [place], 0 [place], therapyPain [place] [id number], [facility] [id number], right leg [facility] tel:[phone] [place], tel:[phone] [place], [address]. 000731 tel:[phone] Arthritis Arthritis Rheu arthritis [facility] factor 3 PA-C Yisel Provider: Alona [facility] w/o 8 B. 5794 Yaniraanton PLLC, 5794 PLLC org/sys [facility], [facility], [facility], scarifier operator [place], [place], (current) drug [place], [address] [place], therapy [id number], [place] [id number], [place]. Road, [place] tel:+24120 [place], tel:+[address] [place], [address]. 24[address] tel:[phone] Arthritis Arthritis Rheu arthritis Jul- [facility] Referring [facility] w rheu factor 8-201 PA-C Yisel Provider: Alona Sage [facility] w/o 8 B. 5794 Aliasgher PLLC, 5794 PLLC org/sys [facility], [facility] involvOther [place], [facility], scarifier operator [place], [place], (current) drug [place], [address] [place], therapy [id number], [place] [id number], [place]. Road, [place] tel:+79129 [place], tel:+[address] [place], [address]. 4813[address] tel:[phone] Arthritis Arthritis Rheumatoid [facility] arthritis w/ 0-201 PA-C Yisel Provider: Alona aSge rheumatoid 8 B. 5794 Aliasgher PLLC, 5794 PLLC factor of [facility], [facility] multiple sites [place], [facility], w/o organ [place], [place], [place]Oth [place], [address] [place], er scarifier operator [id number], [place] [id number], (current) drug [place]. Road, therapy tel:+42 [place], tel:+13 [place], [address]. [address]010 tel:[phone] Arthritis Arthritis Rheumatoid Jan- [facility] arthritis w/ 0-201 PA-C Yisel Provider: Alona Sage rheumatoid 8 B. 5794 Aliasgher PLLC, 5794 PLLC factor of [facility], [facility] multiple sites [place], [facility], w/o organ [place], [place], [place]ai [place], [address] [place], n in rt hand [id number], [place] [id number], [place]. Road, [place] tel:+08662 [place], tel:[phone] [phone] [place], [address]. 483221 tel:[phone] Arthritis Arthritis Rheumatoid Aug-0 [facility] Referring Health Health arthritis w SILVA Morillo Provider: Alona Sage rheumatoid 6 B. 5794 Aliasgher PLLC, 5794 PLLC factor of [facility] multiple sites [place], [facility], w/o organ [place], [place], [place]th [place], [address] [place], er shelter [id number], [place] [id number], (current) drug [place]. Road, therapy tel:+42 [place], tel:+ [place], [address]. 028774 tel:[phone] Arthritis Arthritis Rheumatoid Jan- [facility] Referring [facility] arthritis w SILVA Morillo Provider: Alona Sage rheumatoid 6 B. 5794 Aliasarabellaer PLLC, 5794 PLLC factor of [facility] multiple sites [place], [facility], w/o organ [place], [place], involvementOth [place], [address] [place], er shelter [id number], [place] [id number], (current) drug [place]. Road, therapy tel:+42 [place], tel:+ [place], [address]. [address] tel:[phone] Arthritis Arthritis Rheumatoid Dec- Guy MAE Referring [facility] arthritis w Fred. 5794 Provider: Alona Sage rheumatoid 5 [facility] Gilmaer PLLC, 5794 PLLC factor of [facility] multiple sites [place], [facility], w/o organ [place], [place], involvementOth [id number], [address] [place], er shelter [place]. [place] [id number], drug tel:+11276 Road, therapyAcute [place], tel:+315 [place], [address]. 989085 tel:[phone] Arthritis Arthritis Sep- [facility] Referring [facility] Health SILVA Morillo Provider: Alona Sage 4 B. 5794 Aliasgher PLLC, 5794 PLLC [facility], [facility], [facility], [place], [place], [place], [address] [place], [id number], [place] [id number], [place]. Road, tel:+[phone] [place], tel:[phone] [place], [address]. 972423 tel:[phone] Arthritis Arthritis [facility] PA-C January. Provider: [facility] 3 5794 [facility], 5794 [facility], [facility], [facility], [place], [place], [place], [address] [place], [id number], [place] [id number], [place]. Road, tel:+[phone] [place], tel:[phone] [place], [address]. 891425 tel:[phone] Arthritis Arthritis [facility] PA-C Greg. Provider: [facility] 3 5794 [facility], 5794 [facility], [facility], [facility], [place], [place], [place], [address] [place], [id number], [place] [id number], [place]. Road, tel:+1-56993 [place], tel:[phone] [place], [address]. 205374 tel:[phone] Arthritis Arthritis [facility] PA-C Yisel Provider: [facility] 2 B. 5794 [facility], 5794 [facility], [facility], [facility], [place], [place], [place], [address] [place], [id number], [place] [id number], . Road, tel:+1-44178 [place], tel:[phone] [place], [address]. 209748 tel:[phone] Arthritis Arthritis [facility] PA-C Yisel Provider: [facility] 1 B. 5794 [facility], 5794 [facility], [facility], [place], [place], [address] [place], [id number], [facility] [id number], [place]. Road, tel:+[phone] [place], tel:[phone] [place], [address]. 280246 tel:[phone] Family History Family Member Diagnosis Age At [...] Provider Payers Payer name Insurance type Covered democrat ID Authorization(s) Aetna No Referral Required CI [id number] Social History Type Description Quantity Date Captured [...]
[2018-11-17 14:59] LABS: ABS Basophils 0.1 10^3/ul (0-0.2); ABS Eosinophils 0.1 10^3/ul (0-0.6); ABS Lymphocytes 3.2 10^3/ul (1.0-4.8); ABS Monocytes 0.9 10^3/ul (0-0.8); ABS Neutrophils 8.2 10^3/ul (1.5-7.7); ABS Nucleated RBC 0 10^3/ul; Eosinophil % 1.1 %; Hematocrit 47 % (35-47); Hemoglobin 15.4 g/dl (12.0-16.0); Lymphocyte % 25.8 %; Mean Corpuscular HGB Conc 33 g/dl (31-36); Mean Corpuscular Hemoglobin 27 pg (27-31); Mean Corpuscular Volume 82 fL (80-97); Mean Platelet Volume 9.7 fL (7.4-10.4); Nucleated Red Blood Cells % 0; Platelet Count 268 10^3/ul (150-450); Red Blood Count 5.69 10^6/ul (4.00-5.40); Red Cell Distribution Width 15 % (10.5-15); White Blood Count 12.5 10^3/ul (3.5-10.8)
[2018-11-17 15:10] LABS: INR 1.02 (0.77-1.02)
[2018-11-17 15:15] LABS: Albumin 3.7 g/dL (3.2-5.2); Albumin/Globulin Ratio 1.1 (1-3); BUN/Creatinine Ratio 21.3 (8-20); C Reactive Protein 80.71 mg/L (<8.01); Calcium 9.1 mg/dL (8.6-10.3); EGFR African American 126.7 (>60); EGFR Non-African American 104.7 (>60); Globulin 3.3 g/dL (2-4); Potassium 3.9 mmol/L (3.5-5.0); Total Bilirubin 0.8 mg/dL (0.2-1.0)
--- NOTE | 2018-11-17 16:04 | ED ---
Lower Extremity - HPI Summary HPI Summary: A 48 y/o female presents to [facility] with a chief complaint of a swollen right leg since 3 weeks prior to arrival on 11/17/18. Per triage note, "Pt has RA with flareups, pt had ultrasound to right leg which shows fluid and pt is having severe pain down entire right leg. Pt states sent here from imaging for IV ABX and CT scans." Her Ultrasound reportedly showed no clot but she was instructed to come to the ED due to "a lot of fluid and a cyst" behind her knee. 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 She reports that her knee started to hurt on 11/15/18 and it has gotten progressively more swollen. She claims that her "humerus stopped working" in May 2018. She started Orencia one week [employer], but does not believe her symptoms are RA related even though she has had RA in her ankles and knees. She claims that now her RA is between fingers. Her RA MD is in [place]. She rates her pain as a 8/10 in severity and claims that her pain has been constant for months. - History of Current Complaint Chief Complaint: EDExtremityLower Stated Complaint: RIGHT LEG SWELLING Time Seen by Provider: 11/17/18 15:57 Hx Obtained From: Patient Mechanism Of Injury: Unknown Onset of Pain: Days, Prior to Arrival Onset/Duration: Weeks Severity Initially: Severe Severity Currently: Severe Pain Intensity: 8 Pain Scale Used: 0-10 Numeric Timing: Constant, Lasting Weeks Location: Is Discrete @ - right knee Associated Signs And Symptoms: Positive: Swelling, Knee Pain. Negative: Redness , Fever, Dizziness, Abdominal Pain Aggravating Factor(s): Nothing Alleviating Factor(s): Nothing Able to Bear Weight: Yes - Allergies/Home Medications Allergies/Adverse Reactions: Allergies Allergy/AdvReac Type Severity Reaction Status Date / Time amoxicillin Allergy Hives Verified 11/17/18 12:17 Penicillins Allergy Hives Verified 11/17/18 12:17 Home Medications: Home Medications Abatacept [Orencia Clickjet] 125 mg SUBCUT WEEKLY 11/17/18 [History Confirmed ] Naproxen TAB* [Naprosyn 250 mg TAB*] 500 mg PO BID 11/17/18 [History Confirmed 11/17/18] Omeprazole CAP (NF) [Prilosec CAP* 20 MG] 20 mg PO DAILY 11/17/18 [History Confirmed 11/17/18] Scopolamine 1.5 mg* PATCH* [Transderm-Scop 1.5 mg Patch*] 1 patch TRANSDERM Q72H 11/17/18 [History Confirmed 11/17/18] metFORMIN* [Glucophage 500 MG TAB *] 500 mg PO QAM 11/17/18 [History Confirmed 11/17/18] PMH/Surg Hx/FS Hx/Imm Hx Endocrine/Hematology History: Reports: Hx Diabetes Respiratory History: Reports: Hx Pneumonia Denies: Hx Asthma Musculoskeletal History: Reports: Hx Rheumatoid Arthritis, Other Musculoskeletal History - carpal tunnel - Surgical History Surgery Procedure, Year, and Place: C section x2. surgery for nodules for RA. carpal tunnel. mole removals Infectious Disease History: No Infectious Disease History: Denies: Traveled Outside the [place] in Last 30 Days - Family History Known Family History: Positive: Cardiac Disease, Hypertension, Diabetes - Social History Alcohol Use: None Hx Substance Use: No Substance Use Type: Reports: None Hx Tobacco Use: Yes Smoking Status (MU): Heavy Every Day Tobacco Smoker Review of Systems Positive: Other - Positive: hot flashes. Negative: Fever, Chills Negative: Erythema Negative: Sore Throat Negative: Chest Pain Negative: Shortness Of Breath, Cough Negative: Abdominal Pain, Vomiting, Nausea Negative: dysuria, hematuria Positive: Edema - right leg, Other - Positive: right knee pain. Negative: Myalgia Negative: Rash Neurological: Negative - dizziness All Other Systems Reviewed And Are Negative: Yes Physical Exam - Summary Physical Exam Summary: Constitutional: Well-developed, Well-nourished, Alert. (-) Distressed Skin: Warm, Dry HENT: Normocephalic; Atraumatic Eyes: Conjunctiva normal Neck: Musculoskeletal ROM normal neck. (-) JVD, (-) Stridor, (-) Tracheal deviation Cardio: Rhythm regular, rate normal, Heart sounds normal; Intact distal pulses; The pedal pulses are 2+ and symmetric. Radial pulses are 2+ and symmetric. (-) Murmur Pulmonary/Chest wall: Effort normal. (-) Respiratory distress, (-) Wheezes, (-) Rales Abd: Soft, (-) epigastric tenderness, (-) Distension, (-) Guarding, (-) Rebound Musculoskeletal: Mild warmth overlying right knee very mild swelling just proximal and distal to posterior knee Lymph: (-) Cervical adenopathy Neuro: Alert, Oriented x3 Psych: Mood and affect Normal Triage Information Reviewed: Yes Vital Signs On Initial Exam: Initial Vitals Temp Pulse Resp BP Pulse Ox 97.2 F 97 18 144/92 94 11/17/18 12:17 11/17/18 12:17 11/17/18 12:17 11/17/18 12:17 11/17/18 12:17 Vital Signs Reviewed: Yes Diagnostics - Vital Signs Vital Signs Temp Pulse Resp BP Pulse Ox 11/17/18 15:29 96 11/17/18 15:28 82 156/84 95 11/17/18 15:27 82 11/17/18 14:41 98.7 F 79 20 122/67 93 11/17/18 12:17 97.2 F 97 18 144/92 94 - Laboratory Lab Results: Lab Results 11/17/18 11/17/18 11/17/18 Range/Units 14:41 14:41 14:41 WBC 12.5 H (3.5-10.8) 10^3/ul RBC 5.69 H (4.00-5.40) 10^6/ul Hgb 15.4 (12.0-16.0) g/dl Hct 47 (35-47) % MCV 82 (80-97) fL MCH 27 (27-31) pg MCHC 33 (31-36) g/dl RDW 15 (10.5-15) % Plt Count 268 (150-450) 10^3/ul MPV 9.7 (7.4-10.4) fL Neut % (Auto) 65.4 % Lymph % (Auto) 25.8 % Isabella % (Auto) 7.0 % Eos % (Auto) 1.1 % Baso % (Auto) 0.7 % Absolute Neuts (auto) 8.2 H (1.5-7.7) 10^3/ul Absolute Lymphs (auto) 3.2 (1.0-4.8) 10^3/ul Absolute Monos (auto) 0.9 H (0-0.8) 10^3/ul Absolute Eos (auto) 0.1 (0-0.6) 10^3/ul Absolute Basos (auto) 0.1 (0-0.2) 10^3/ul Absolute Nucleated RBC 0 10^3/ul Nucleated RBC % 0 INR (Anticoag Therapy) 1.02 (0.77-1.02) APTT 30.0 (26.0-36.3) seconds Sodium 135 (135-145) mmol/L Potassium 3.9 (3.5-5.0) mmol/L Chloride 104 (101-111) mmol/L Carbon Dioxide 25 (22-32) mmol/L Anion Gap 6 (2-11) mmol/L BUN 13 (6-24) mg/dL Creatinine 0.61 (0.51-0.95) mg/dL Est GFR ( Amer) 126.7 (>60) Est GFR (Non-Af Amer) 104.7 (>60) BUN/Creatinine Ratio 21.3 H (8-20) Glucose 134 H (70-100) mg/dL Lactic Acid (0.5-2.0) mmol/L Calcium 9.1 (8.6-10.3) mg/dL Total Bilirubin 0.80 (0.2-1.0) mg/dL AST 12 L (13-39) U/L ALT 15 (7-52) U/L Alkaline Phosphatase 74 (34-104) U/L C-Reactive Protein 80.71 H (<8.01) mg/L Total Protein 7.0 (6.4-8.9) g/dL Albumin 3.7 (3.2-5.2) g/dL Globulin 3.3 (2-4) g/dL Albumin/Globulin Ratio 1.1 (1-3) 11/17/18 Range/Units 14:41 WBC (3.5-10.8) 10^3/ul RBC (4.00-5.40) 10^6/ul Hgb (12.0-16.0) g/dl Hct (35-47) % MCV (80-97) fL MCH (27-31) pg MCHC (31-36) g/dl RDW (10.5-15) % Plt Count (150-450) 10^3/ul MPV (7.4-10.4) fL Neut % (Auto) % Lymph % (Auto) % Isabella % (Auto) % Eos % (Auto) % Baso % (Auto) % Absolute Neuts (auto) (1.5-7.7) 10^3/ul Absolute Lymphs (auto) (1.0-4.8) 10^3/ul Absolute Monos (auto) (0-0.8) 10^3/ul Absolute Eos (auto) (0-0.6) 10^3/ul Absolute Basos (auto) (0-0.2) 10^3/ul Absolute Nucleated RBC 10^3/ul Nucleated RBC % INR (Anticoag Therapy) (0.77-1.02) APTT (26.0-36.3) seconds Sodium (135-145) mmol/L Potassium (3.5-5.0) mmol/L Chloride (101-111) mmol/L Carbon Dioxide (22-32) mmol/L Anion Gap (2-11) mmol/L BUN (6-24) mg/dL Creatinine (0.51-0.95) mg/dL Est GFR ( Amer) (>60) Est GFR (Non-Af Amer) (>60) BUN/Creatinine Ratio (8-20) Glucose (70-100) mg/dL Lactic Acid 0.8 (0.5-2.0) mmol/L Calcium (8.6-10.3) mg/dL Total Bilirubin (0.2-1.0) mg/dL AST (13-39) U/L ALT (7-52) U/L Alkaline Phosphatase (34-104) U/L C-Reactive Protein (<8.01) mg/L Total Protein (6.4-8.9) g/dL Albumin (3.2-5.2) g/dL Globulin (2-4) g/dL Albumin/Globulin Ratio (1-3) Result Diagrams: 11/17/18 14:41 11/17/18 14:41 Lab Statement: Any lab studies that have been ordered have been reviewed, and results considered in the medical decision making process. - Radiology knee x-ray Radiology Interpretation Completed By: Radiologist Summary of Radiographic Findings: . 1. Radiographic findings suggest but do not prove subcutaneous emphysema in a soft tissue. fluid collection posterior to the distal right femoral metaphysis. Please correlate to. signs or symptoms of subcutaneous abscess or other gas-forming soft tissue infection. If. clinically warranted superior characterization can be made with contrast- enhanced CT. 2. The visualized bones are grossly normal and anatomically aligned. ED provider has reviewed this imaging report. - CT lower extremity CT Interpretation Completed By: Radiologist Summary of CT Findings: Evidence for septic knee joint, with large infected gas containing Ogden's cyst. extending superiorly into the semimembranosus and additional presumed infected. fluid along the course of the popliteus. ED provider has reviewed this imaging report. Lower Extremity Course/Dx - Course Course Of Treatment: A 48 y/o female presents to [facility] with a chief complaint of a swollen right leg since 3 weeks prior to arrival on 11/17/18. The physical exam revealed mild warmth overlying right knee very mild swelling just proximal and distal to posterior knee. Knee x-ray impression: 1. Radiographic findings suggest but do not prove subcutaneous emphysema in a soft tissue. fluid collection posterior to the distal right femoral metaphysis. Please correlate to. signs or symptoms of subcutaneous abscess or other gas-forming soft tissue infection. If. clinically warranted superior characterization can be made with contrast-enhanced CT. 2. The visualized bones are grossly normal and anatomically aligned. Lower extremity CT impression: Evidence for septic knee joint, with large infected gas containing Ogden's cyst. extending superiorly into the semimembranosus and additional presumed infected. fluid along the course of the popliteus. Lab results obtained. High WBC of 12.5 at 14:41. In the ED course the patient was given Vancomycin IVPB, Ceftriaxone Sodium IVPB, Sodium Chloride IV and Iodixanol (contrast) IV. Discussed case with Dr. Lafleur, orthopedic surgeon, who recommended transfer to a vascular surgeon due to proximity of her abscess her popliteal artery. Discussed case with Dr[facility]ill[facility] at [facility], who accepted the patient for transfer. The patient is agreeable with this plan. - Diagnoses Provider Diagnoses: Septic arthritis - Physician Notifications Discussed Care Of Patient With: Destiny Lafleur Time Discussed With Above Provider: 19:45 Instructed by Provider To: Other - Recommended transfer to a vascular surgeon due to backup in her popliteal artery. - Critical Care Time Critical Care Time: 30-74 min - 45 mins Discharge - Sign-Out/Discharge Documenting (check all that apply): Patient Departure - transfer - Discharge Plan Condition: Fair Disposition: TRANS HIGHER LVL OF CARE FAC Referrals: Temi Rain MD [Primary Care Provider] - - Billing Disposition and Condition Condition: FAIR Disposition: Trans Higher Lvl of Care Fac - Attestation Statements Document Initiated by Scribe: Yes Documenting Scribe: Michele Ferrell Provider For Whom Scribe is Documenting (Include Credential): Mina Martinez MD Scribe Attestation: IMichele, scribed for Mina Martinez MD on 11/17/18 at 2119. Scribe Documentation Reviewed: Yes Provider Attestation: The documentation as recorded by the Michele moya accurately reflects the service I personally performed and the decisions made by me, Mina Martinez MD Status of Scribe Document: Viewed Consult Consult: At 20:45- Discussed case with Dr[facility] Guill[facility] at [facility], who accepted the patient for transfer.
[2018-11-17] MEDS ORDERED: Iodixanol* (CONTRAST) 320 MG/ML 100 ML SDV IV ONE (17:31)
[2018-11-17 18:43] LABS: Urine Appearance Clear; Urine Bilirubin Negative (Negative); Urine Blood Negative (Negative); Urine Color Yellow; Urine Glucose Negative (Negative); Urine Ketones Negative (Negative); Urine Nitrite Negative (Negative); Urine Protein Negative (Negative); Urine Specific Gravity 1.008 (1.010-1.030); Urine Urobilinogen Negative (Negative)
[2018-11-17] MEDS ORDERED: NS 0.9% 1000 ML* 2,600 ML IV ONE (19:26)
[2018-11-17] MEDS ORDERED: cefTRIAXone(*) 1 GM in NS 0.9% 50 ML* 50 ML IVPB ONE (19:40)
[2018-11-17] MEDS ORDERED: Vancomycin(*) 1,500 MG in NS 0.9% 250 ML* 250 ML IVPB ONE (19:40)
[2018-11-17] MEDS ORDERED: NS 0.9% 250 ML* 250 ML ONE (19:44)
[2018-11-17 21:31] VITALS: BP 134/70
== END 2018-11-17 21:32 | disposition short-term general hospital (02) ==
LOC: ED 12:15
DX: M00.9 Pyogenic arthritis, unspecified (principal); M06.9 Rheumatoid arthritis, unspecified; Z88.0 Allergy status to penicillin; E11.9 Type 2 diabetes mellitus without complications; Z79.84 Long term (current) use of oral hypoglycemic drugs; Z72.0 Tobacco use
CPT/HCPCS: 36415; 80053; 81003; 83605; 85025; 85610; 85730; 86140; 87040; 96361; 96374; 96375; 99283; J0696; J3370; Q9967

== ENCOUNTER 2023-09-05 21:46 | Observation (INO) ==
[2023-09-05 22:09] LABS: ABS Basophils 0.1 10^3/uL (0.0-0.1); ABS Lymphocytes 2.2 10^3/uL (1.0-4.8); ABS Monocytes 0.7 10^3/uL (0.0-0.9); ABS Neutrophils 13.7 10^3/uL (1.5-7.6); ABS Nucleated RBC 0.02 10^3/ul; Eosinophil % 0.2 %; Hematocrit 51.2 % (35-45); Hemoglobin 17.2 g/dL (11.5-14.3); Mean Corpuscular Hemoglobin 29.5 pg (27-33); Mean Corpuscular Hgb Conc 33.5 g/dL (31-36); Mean Corpuscular Volume 88.1 fL (80-97); Mean Platelet Volume 9.4 fL (7.5-11.2); Nucleated Red Blood Cells % 0.1 %/100WBC (0.0-0.8); Platelet Count 252 10^3/uL (150-450); Red Blood Count 5.81 10^6/uL (3.63-4.92); Red Cell Distribution Width 14.5 % (12-17); White Blood Count 16.6 10^3/uL (3.8-11.8)
[2023-09-05 22:15] LABS: INR 1.07 (0.83-1.13)
[2023-09-05 22:29] LABS: Albumin 4.4 g/dL (3.2-5.2); Albumin/Globulin Ratio 1.5 (1-3); Calcium 9.2 mg/dL (8.6-10.3); Creatinine, Serum 0.71 mg/dL (0.51-0.95); Globulin 2.9 g/dL (2-4); Potassium 4.2 mmol/L (3.5-5.0); Total Bilirubin 0.4 mg/dL (0.2-1.0); Total Protein 7.3 g/dL (6.4-8.9); eGFR CKD-EPI 101.6 (>60)
[2023-09-05 23:39] LABS: High Sensitivity Troponin 1 Hr 40 pg/mL (<15)
[2023-09-06] MEDS ORDERED: Iodixanol (CONTRAST) 320 MG/ML 100 ML SDV IV ONE (01:53)
[2023-09-06] MEDS: Enoxaparin 40 MG/0.4 ML SYR SUBCUT SCH (06:20)
[2023-09-06] MEDS: Azithromycin 500 mg/250 ml NS 500 MG/250 ML BAG IVPB SCH (06:21)
[2023-09-06 07:52] LABS: ABS Basophils 0.1 10^3/uL (0.0-0.1); ABS Eosinophils 0.1 10^3/uL (0.0-0.5); ABS Lymphocytes 3.2 10^3/uL (1.0-4.8); ABS Monocytes 0.8 10^3/uL (0.0-0.9); ABS Neutrophils 9.1 10^3/uL (1.5-7.6); ABS Nucleated RBC 0.01 10^3/ul; Hematocrit 47.3 % (35-45); Hemoglobin 15.5 g/dL (11.5-14.3); Mean Corpuscular Hgb Conc 32.8 g/dL (31-36); Mean Corpuscular Volume 88.5 fL (80-97); Mean Platelet Volume 9.2 fL (7.5-11.2); Platelet Count 238 10^3/uL (150-450); Red Blood Count 5.35 10^6/uL (3.63-4.92); Red Cell Distribution Width 14.5 % (12-17); White Blood Count 13.4 10^3/uL (3.8-11.8)
[2023-09-06 08:11] LABS: Calcium 8.7 mg/dL (8.6-10.3); Creatinine, Serum 0.51 mg/dL (0.51-0.95); eGFR CKD-EPI 111.5 (>60)
[2023-09-06] MEDS ORDERED: GLIPIZIDE METFORMIN PO SCH (09:00)
[2023-09-06] MEDS ORDERED: cefTRIAXone 1 gm/50 mL D5W 1 GM/50 ML BAG IV SCH (10:30)
[2023-09-06 14:47] LABS: High Sensitivity Troponin 1 Hr 25 pg/mL (<15)
[2023-09-07] MEDS: Azithromycin 500 mg/250 ml NS 500 MG/250 ML BAG IVPB SCH (05:55)
[2023-09-07] MEDS: Enoxaparin 40 MG/0.4 ML SYR SUBCUT SCH (05:58)
[2023-09-07 07:45] LABS: Hematocrit 47.3 % (35-45); Hemoglobin 15.6 g/dL (11.5-14.3); Mean Corpuscular Hemoglobin 29.1 pg (27-33); Mean Corpuscular Hgb Conc 32.9 g/dL (31-36); Mean Corpuscular Volume 88.3 fL (80-97); Mean Platelet Volume 9.7 fL (7.5-11.2); Platelet Count 230 10^3/uL (150-450); Red Blood Count 5.36 10^6/uL (3.63-4.92); Red Cell Distribution Width 14.3 % (12-17); White Blood Count 10.3 10^3/uL (3.8-11.8)
[2023-09-07 08:21] LABS: Calcium 8.8 mg/dL (8.6-10.3); Creatinine, Serum 0.59 mg/dL (0.51-0.95); Magnesium 1.9 mg/dL (1.9-2.7); Potassium 4.2 mmol/L (3.5-5.0); eGFR CKD-EPI 107.7 (>60)
[2023-09-07] MEDS ORDERED: Regadenoson 0.4 MG/5 ML SYRINGE ONE (13:49)
[2023-09-07 14:34] VITALS: BP 140/74
[2023-09-07] MEDS ORDERED: cefTRIAXone 1 gm/50 mL D5W 1 GM/50 ML BAG IV ONE (15:20)
== END 2023-09-07 18:10 | disposition home or self-care (01) ==
LOC: ED 21:46 → EDHOLD 21:46 → SUATTDRO 09-06 03:27 → SSU 09-06 06:38
PROVIDERS: ADMIT Internal Medicine; ATTEND Hospitalist